=== PATIENT | female | born 1945 | race Caucasian/White ===

== ENCOUNTER 2016-04-08 10:00 | Outpatient (RCR) | END 2016-04-09 | LOC: NEWBEG 10:00 | PROVIDERS: ATTEND Psychiatry & Neurology Psychiatry | DX: F33.2 Major depressive disorder, recurrent severe without psychotic features (principal); F41.9 Anxiety disorder, unspecified; F01.50 Vascular dementia, unspecified severity, without behavioral disturbance, psychotic disturbance, mood disturbance, and anxiety | CPT/HCPCS: 90832; 90853; 99213; 99214 ==

== ENCOUNTER 2016-05-06 10:00 | Outpatient (RCR) | END 2016-05-07 | LOC: NEWBEG 10:00 | PROVIDERS: ATTEND Psychiatry & Neurology Psychiatry | DX: F41.9 Anxiety disorder, unspecified (principal); F33.2 Major depressive disorder, recurrent severe without psychotic features; F01.50 Vascular dementia, unspecified severity, without behavioral disturbance, psychotic disturbance, mood disturbance, and anxiety | CPT/HCPCS: 90834; 90853; 99214 ==

== ENCOUNTER → 2016-06-07 | Outpatient (RCR) | LOC: NEWBEG 05-08 08:26 | PROVIDERS: ATTEND Psychiatry & Neurology Psychiatry | DX: F41.9 Anxiety disorder, unspecified (principal); F33.2 Major depressive disorder, recurrent severe without psychotic features; F01.50 Vascular dementia, unspecified severity, without behavioral disturbance, psychotic disturbance, mood disturbance, and anxiety | CPT/HCPCS: 90853; 99213; 99214 ==

== ENCOUNTER 2016-07-05 10:00 | Outpatient (RCR) | END 2016-07-07 | LOC: NEWBEG 10:00 | PROVIDERS: ATTEND Psychiatry & Neurology Psychiatry | DX: F41.9 Anxiety disorder, unspecified (principal); F33.2 Major depressive disorder, recurrent severe without psychotic features; F01.50 Vascular dementia, unspecified severity, without behavioral disturbance, psychotic disturbance, mood disturbance, and anxiety | CPT/HCPCS: 90853; 99213 ==

== ENCOUNTER → 2016-08-07 | Outpatient (RCR) | LOC: NEWBEG 07-08 10:33 | PROVIDERS: ATTEND Psychiatry & Neurology Psychiatry | DX: F41.9 Anxiety disorder, unspecified (principal); F33.2 Major depressive disorder, recurrent severe without psychotic features; F01.50 Vascular dementia, unspecified severity, without behavioral disturbance, psychotic disturbance, mood disturbance, and anxiety | CPT/HCPCS: 90853; 99213 ==

== ENCOUNTER → 2016-09-06 | Outpatient (RCR) | LOC: NEWBEG 08-08 09:26 | PROVIDERS: ATTEND Psychiatry & Neurology Psychiatry | DX: F41.9 Anxiety disorder, unspecified (principal); F33.2 Major depressive disorder, recurrent severe without psychotic features; F01.50 Vascular dementia, unspecified severity, without behavioral disturbance, psychotic disturbance, mood disturbance, and anxiety | CPT/HCPCS: 90853; 99213 ==

== ENCOUNTER → 2016-10-07 | Outpatient (RCR) | LOC: NEWBEG 10-04 11:01 | PROVIDERS: ATTEND Psychiatry & Neurology Psychiatry | DX: F33.2 Major depressive disorder, recurrent severe without psychotic features (principal); F41.9 Anxiety disorder, unspecified; F01.50 Vascular dementia, unspecified severity, without behavioral disturbance, psychotic disturbance, mood disturbance, and anxiety ==

== ENCOUNTER 2016-11-06 09:00 | Outpatient (RCR) | END 2016-11-07 | LOC: NEWBEG 09:00 | PROVIDERS: ATTEND Psychiatry & Neurology Psychiatry | DX: F01.50 Vascular dementia, unspecified severity, without behavioral disturbance, psychotic disturbance, mood disturbance, and anxiety (principal); F33.2 Major depressive disorder, recurrent severe without psychotic features; F41.9 Anxiety disorder, unspecified | CPT/HCPCS: 90834; 90837; 99214 ==

== ENCOUNTER 2016-12-06 10:00 | Outpatient (RCR) | END 2016-12-07 | LOC: NEWBEG 10:00 | PROVIDERS: ATTEND Psychiatry & Neurology Psychiatry | DX: F01.50 Vascular dementia, unspecified severity, without behavioral disturbance, psychotic disturbance, mood disturbance, and anxiety (principal); F33.2 Major depressive disorder, recurrent severe without psychotic features; F41.9 Anxiety disorder, unspecified | CPT/HCPCS: 90832; 90834; 90853; 99213; 99214 ==

== ENCOUNTER 2017-02-05 10:00 | Outpatient (RCR) | END 2017-02-06 | LOC: NEWBEG 10:00 | PROVIDERS: ATTEND Psychiatry & Neurology Psychiatry | DX: F01.50 Vascular dementia, unspecified severity, without behavioral disturbance, psychotic disturbance, mood disturbance, and anxiety (principal); F33.2 Major depressive disorder, recurrent severe without psychotic features; F41.9 Anxiety disorder, unspecified | CPT/HCPCS: 90853; 99213 ==

== ENCOUNTER 2017-03-05 10:00 | Outpatient (RCR) | END 2017-03-09 | LOC: NEWBEG 10:00 | PROVIDERS: ATTEND Psychiatry & Neurology Psychiatry | DX: F01.50 Vascular dementia, unspecified severity, without behavioral disturbance, psychotic disturbance, mood disturbance, and anxiety (principal); F33.2 Major depressive disorder, recurrent severe without psychotic features; F41.9 Anxiety disorder, unspecified | CPT/HCPCS: 90853; 99213 ==

== ENCOUNTER → 2017-04-09 | Outpatient (RCR) | LOC: NEWBEG 03-11 09:53 | PROVIDERS: ATTEND Psychiatry & Neurology Psychiatry | DX: F01.50 Vascular dementia, unspecified severity, without behavioral disturbance, psychotic disturbance, mood disturbance, and anxiety (principal); F33.2 Major depressive disorder, recurrent severe without psychotic features; F41.9 Anxiety disorder, unspecified | CPT/HCPCS: 90853; 99213 ==

== ENCOUNTER → 2017-05-07 | Outpatient (RCR) | LOC: NEWBEG 04-10 08:46 | PROVIDERS: ATTEND Psychiatry & Neurology Psychiatry | DX: F01.50 Vascular dementia, unspecified severity, without behavioral disturbance, psychotic disturbance, mood disturbance, and anxiety (principal); F33.2 Major depressive disorder, recurrent severe without psychotic features; F41.9 Anxiety disorder, unspecified | CPT/HCPCS: 90853; 99213 ==

== ENCOUNTER 2017-06-06 10:00 | Outpatient (RCR) | END 2017-06-07 | LOC: NEWBEG 10:00 | PROVIDERS: ATTEND Psychiatry & Neurology Psychiatry | DX: F01.50 Vascular dementia, unspecified severity, without behavioral disturbance, psychotic disturbance, mood disturbance, and anxiety (principal); F33.2 Major depressive disorder, recurrent severe without psychotic features; F41.9 Anxiety disorder, unspecified | CPT/HCPCS: 90832; 90837; 90853; 99213 ==

== ENCOUNTER 2017-07-04 10:00 | Outpatient (RCR) | END 2017-07-07 23:59 | LOC: NEWBEG 10:00 | PROVIDERS: ATTEND Psychiatry & Neurology Psychiatry | DX: F01.50 Vascular dementia, unspecified severity, without behavioral disturbance, psychotic disturbance, mood disturbance, and anxiety (principal); F33.2 Major depressive disorder, recurrent severe without psychotic features; F41.9 Anxiety disorder, unspecified | CPT/HCPCS: 90832; 90834; 90853; 99213 ==

== ENCOUNTER 2017-07-11 10:00 | Outpatient (RCR) | END 2017-08-07 23:59 | LOC: NEWBEG 10:00 | PROVIDERS: ATTEND Psychiatry & Neurology Psychiatry | DX: F01.50 Vascular dementia, unspecified severity, without behavioral disturbance, psychotic disturbance, mood disturbance, and anxiety (principal); F33.2 Major depressive disorder, recurrent severe without psychotic features; F41.9 Anxiety disorder, unspecified | CPT/HCPCS: 90853; 99213 ==